=== PATIENT | male | born 2000 | race Caucasian/White ===

== ENCOUNTER 2025-09-26 16:46 | Emergency (ER) | payer OTHER ==
[2025-09-26] MEDS ORDERED: HYDROCODONE/APAP 7.5/325 MG TAB ONE (16:48)
--- NOTE | 2025-09-26 16:56 | EDPHYS ---
Physician Documentation [facility] Name: Earnest Farooq Age: 25 yrs Sex: Male : 2000 Arrival Date: 09/26/2025 Time: 16:46 Bed IW1 Private MD: ED Physician Anton Hogan HPI: 09/26 16:54 This 25 yrs old Male presents to ER via Ambulatory with complaints of Headache, Facial kb Swelling, Toothache. 16:54 Pt is a 25 year old male who presents for dental abscess that has been ongoing for 2 kb months. States he now has headaches so he came in for pain medication. Denies fever. Historical: - Allergies: 16:51 PENICILLINS; ll1 16:51 Amoxicillin; ll1 - PMHx: 16:51 Hypertensive disorder; ll1 - PSHx: 16:51 None; ll1 - Immunization history:: Adult Immunizations up to date. - Infectious Disease History:: Denies. - Social history:: Smoking status: Patient denies any tobacco usage or history of. ROS: 16:53 Constitutional: As per HPI kb Exam: 16:53 Constitutional: This is a well developed, well nourished patient who is awake, alert, kb and in no acute distress. Head/Face: Normocephalic, atraumatic. Respiratory: Respirations even and unlabored. No increased work of breathing. Talking in full sentences Skin: Warm, dry with normal turgor. Normal color. MS/ Extremity: Pulses equal, no cyanosis. Neurovascular intact. Full, normal range of motion. Neuro: Awake and alert, GCS 15, oriented to person, place, time, and situation. 16:53 ENT: Dental exam: abscess, that is mild, specifically in the upper left lateral incisor (#10), pain, that is moderate, Vital Signs: 16:52 BP 157 / 102; Pulse 85; Resp 17; Temp 97.6; Pulse Ox 97% ; Weight 104.33 kg; Height 5 ll1 ft. 7 in. ; Pain 5/10; 16:52 Body Mass Index 36.02 (104.33 kg, 170.18 cm) ll1 16:52 Pain Scale: Adult ll1 MDM: 16:49 Medical Screening Exam initiated kb 16:54 Differential diagnosis: dental abscess, dental carries, toothache. Data reviewed: vital kb signs, nurses notes. Historians other than the Patient: Spouse/Significant Other: significant other. Counseling: I had a detailed discussion with the patient and/or guardian regarding the historical points, exam findings, and any diagnostic results supporting the discharge/admit diagnosis, the need for outpatient follow up, a dentist, to return to the emergency department if symptoms worsen or persist or if there are any questions or concerns that arise at home. Administered Medications: 16:59 Drug: Hydrocodone-Acetaminophen PO (7.5 mg-325 mg) 1 tabs PO once {Note: pain 5/10 RASS ll1 0.} Route: PO; 17:03 Follow up: Response: No adverse reaction ll1 16:59 Drug: Clindamycin PO 300 mg PO once Route: PO; ll1 17:03 Follow up: Response: No adverse reaction ll1 Disposition: 18:22 Co-signature as Attending Physician, Anton Hogan MD I reviewed the patient's care rn provided by the Advanced Practice Provider and agree with the diagnosis and treatment plan. Disposition Summary: 09/26/25 16:56 Discharge Ordered Notes: Location: Home kb Condition: Stable kb Diagnosis - Periapical abscess without sinus kb Followup: kb - With: Emergency Department - When: As needed - Reason: Worsening of condition Followup: kb - With: Private Physician - When: 2 - 3 days - Reason: Recheck today's complaints, Continuance of care, Re-evaluation by your physician Discharge Instructions: - Discharge Summary Sheet kb - Dental Pain, [id number] kb - Dental Abscess, [id number] kb Forms: - Medication Reconciliation Form kb - Antibiotic Education kb - Prescription Opioid Use kb - Patient Portal Instructions kb - Leadership Thank You Letter kb - Work release form ll1 Prescriptions: - Clindamycin HCl 300 mg Oral Capsule - take 1 capsule ORAL route every 6 hours for 10 days; 40 capsule; Refills: 0, kb Product Selection Permitted - Ibuprofen 800 mg Oral Tablet - take 1 tablet ORAL route every 8 hours As needed take with food; 30 tablet; kb Refills: 0, Product Selection Permitted Signatures: Liz Dickens FNP-C FNP-Ckb Nieto, Roman, MD MD rn Lewis, Lynsay, RN RN ll1
--- NOTE | 2025-09-26 16:56 | ER ---
Nurse's Notes [facility] Name: Earnest Farooq Age: 25 yrs Sex: Male : 2000 Arrival Date: 09/26/2025 Time: 16:46 Bed IW1 Private MD: Diagnosis: Periapical abscess without sinus Presentation: 09/26 16:50 Chief complaint: Patient states: Mouth pain for over 1 month. + [place], and L sided tooth ll1 pain now. Coronavirus screen: Client denies travel out of the [place] in the last 14 days. At this time, the client does not indicate any symptoms associated with coronavirus-19. Ebola Screen: Patient denies travel to an Ebola-affected area in the 21 days before illness onset. Initial Sepsis Screen: Does the patient meet any 2 criteria? No. Patient's initial sepsis screen is negative. Does the patient have a suspected source of infection? No. Patient's initial sepsis screen is negative. Risk Assessment: Do you want to hurt yourself or someone else? Patient reports no desire to harm self or others. Onset of symptoms was August 26, 2025. 16:50 Method Of Arrival: Ambulatory ll1 16:50 Acuity: CHERYL 4 ll1 Triage Assessment: 16:51 General: Appears uncomfortable, Behavior is calm, cooperative, appropriate for age. ll1 Pain: Complains of pain in upper left lateral incisor (#10) Pain currently is 6 out of 10 on a pain scale. Quality of pain is described as aching, Pain began 1+ month Also complains of inability to concentrate. EENT: Reports pain in upper left lateral incisor (#10). Neuro: Reports headache. Cardiovascular: No deficits noted. 17:13 Headache History: Denies prior headaches. ll1 Historical: - Allergies: 16:51 PENICILLINS; ll1 16:51 Amoxicillin; ll1 - PMHx: 16:51 Hypertensive disorder; ll1 - PSHx: 16:51 None; ll1 - Immunization history:: Adult Immunizations up to date. - Infectious Disease History:: Denies. - Social history:: Smoking status: Patient denies any tobacco usage or history of. Screenin:03 [facility] ED Fall Risk Assessment (Adult) History of falling in the last 3 months, ll1 including since admission No falls in past 3 months (0 pts) Confusion or Disorientation No (0 pts) Intoxicated or Sedated No (0 pts) Impaired Gait No (0 pts) Mobility Assist Device Used No (0 pt) Altered Elimination No (0 pt) Score/Fall Risk Level 0 - 2 = Low Risk Maintained a safe environment, Hourly rounding (assess needs \T\ fall precautionary measures) done. Abuse screen: Denies threats or abuse. Nutritional screening: No deficits noted. Tuberculosis screening: No symptoms or risk factors identified. Assessment: 17:03 Reassessment: No changes from previously documented assessment. Patient and/or family ll1 updated on plan of care and expected duration. Pain level reassessed. Patient is alert, oriented x 3, equal unlabored respirations, skin warm/dry/pink. Vital Signs: 16:52 BP 157 / 102; Pulse 85; Resp 17; Temp 97.6; Pulse Ox 97% ; Weight 104.33 kg; Height 5 ll1 ft. 7 in. ; Pain 5/10; 16:52 Body Mass Index 36.02 (104.33 kg, 170.18 cm) ll1 16:52 Pain Scale: Adult ll1 ED Course: 16:49 Patient arrived in ED. al6 16:49 Liz Dickens [facility]NP-C [facility]. kb 16:49 Anton Hogan MD is Attending Physician. kb 16:51 Triage completed. ll1 16:59 Arm band placed on. ll1 17:12 Patient has correct armband on for positive identification. Provided Education on: ER ll1 procedures and process. 17:12 No provider procedures requiring assistance completed. Patient did not have IV access ll1 during this emergency room visit. Administered Medications: 16:59 Drug: Hydrocodone-Acetaminophen PO (7.5 mg-325 mg) 1 tabs PO once {Note: pain 5/10 RASS ll1 0.} Route: PO; 17:03 Follow up: Response: No adverse reaction ll1 16:59 Drug: Clindamycin PO 300 mg PO once Route: PO; ll1 17:03 Follow up: Response: No adverse reaction ll1 Medication: 17:13 VIS not applicable for this client. ll1 Outcome: 16:56 Discharge ordered by . kb 17:03 Patient left the ED. ll1 17:03 Discharged to home ambulatory, ll1 17:03 Discharge instructions given to patient, Instructed on discharge instructions, follow up and referral plans. medication usage, Demonstrated understanding of instructions, follow-up care, medications, Prescriptions given X 2, 17:12 Condition: stable ll1 Signatures: Liz Dickens FNP-C FNP-Yvette Cunha RN RN ll1 Radha Chávez al6
[2025-09-26 18:12] VITALS: BP 157/102; TEMP 97.6; O2SAT 97
== END 2025-09-26 17:03 | disposition home or self-care (01) ==
LOC: ER 16:46
DX: K04.7 Periapical abscess without sinus (principal)
CPT/HCPCS: 99283